=== PATIENT | female | born 1965 | race Caucasian/White ===

== ENCOUNTER 2019-02-01 08:32 | Day surgery (SDC) | payer BC ==
[~2019-02-01 08:32] MED LIST: Lactated Ringers 1,000 ML IV SCH; Sodium Chloride 0.9% 10 ML SDV IV PRN; Sodium Chloride 0.9% 10 ML Syringe FLUSH PRN; Sodium Chloride 0.9% 2.5 ML Syringe FLUSH PRN
--- NOTE | 2019-02-01 10:03 | PCM.PREANE ---
Preanesthetic Assessment - Anesthesia/Transfusion/Family Hx Anesthesia History: Prior Anesthesia Without Reaction Family History of Anesthesia Reaction: No Transfusion History: No Prior Transfusion(s) - Review of Systems General: No Symptoms Pulmonary: No Symptoms Cardiovascular: No Symptoms Gastrointestinal: No Symptoms Neurological: No Symptoms Other: Reports: None - Physical Assessment Vital Signs: Last Vital Signs Temp 98.1 F 02/01/19 09:53 Pulse 53 L 02/01/19 09:53 Resp 16 02/01/19 09:53 BP 144/95 H 02/01/19 09:54 Pulse Ox 97 02/01/19 09:53 Height: 5 ft 4 in Weight: 71.668 kg ASA Class: 2 Mental Status: Alert & Oriented x3 Airway Class: Mallampati = 2 Dentition: Reports: Normal Dentition - Lab Values: Laboratory Last Values WBC 8.94 K/uL (4.0-11.0) 02/01/19 09:12 RBC 4.85 M/uL (4.30-5.90) 02/01/19 09:12 Hgb 16.3 g/dL (12.0-16.0) H 02/01/19 09:12 Hct 47.9 % (36.0-46.0) H 02/01/19 09:12 MCV 98.8 fL (80.0-98.0) H 02/01/19 09:12 MCH 33.6 pg (27.0-32.0) H 02/01/19 09:12 MCHC 34.0 g/dL (31.0-37.0) 02/01/19 09:12 RDW Std Deviation 48.8 fl (28.0-62.0) 02/01/19 09:12 RDW Coeff of Anamika 14 % (11.0-15.0) 02/01/19 09:12 Plt Count 189 K/uL (150-400) 02/01/19 09:12 MPV 10.90 fL (7.40-12.00) 02/01/19 09:12 Nucleated RBC % 0.0 /100WBC 02/01/19 09:12 Nucleated RBCs # 0 K/uL 02/01/19 09:12 Urine HCG, Qual NEGATIVE (NEGATIVE) 02/01/19 09:12 - Allergies Allergies/Adverse Reactions: Allergies Allergy/AdvReac Type Severity Reaction Status Date / Time No Known Allergies Allergy Verified 01/29/19 11:42 - Blood Blood Available: No - Anesthesia Plan Pre-Op Medication Ordered: None - Acknowledgements Anesthesia Type Planned: General Anesthesia Pt an Appropriate Candidate for the Planned Anesthesia: Yes Alternatives and Risks of Anesthesia Discussed w Pt/Guardian: Yes Pt/Guardian Understands and Agrees with Anesthesia Plan: Yes Additional Comments: PMH: smoker, IBS PLAN: ga/lma PreAnesthesia Questionnaire HEENT History: Reports: Other (See Below) Other HEENT History: wears glasses Cardiovascular History: Reports: None Respiratory History: Reports: None Gastrointestinal History: Reports: None Genitourinary History: Reports: None Musculoskeletal History: Reports: Fracture Neurological History: Reports: None Psychiatric History: Reports: None Endocrine/Metabolic History: Reports: None Hematologic History: Reports: None Immunologic History: Reports: None Oncologic (Cancer) History: Reports: None Dermatologic History: Reports: None - Past Surgical History Head Surgeries/Procedures: Reports: None HEENT Surgical History: Reports: None Cardiovascular Surgical History: Reports: None Respiratory Surgical History: Reports: None GI Surgical History: Reports: Colonoscopy Female Surgical History: Reports: None Endocrine Surgical History: Reports: None Neurological Surgical History: Reports: None Musculoskeletal Surgical History: Reports: ORIF Other Musculoskeletal Surgeries/Procedures:: ORIF rt ankle fracture Oncologic Surgical History: Reports: None Dermatological Surgical History: Reports: None - SUBSTANCE USE Smoking Status *Q: Current Every Day Smoker Tobacco Use Within Last Twelve Months: Cigarettes - HOME MEDS Home Medications: Home Meds Cholecalciferol (Vitamin D3) [Vitamin D3] 600 units PO DAILY 01/29/19 [History] Multivitamin [Multivitamins] 1 tab PO DAILY 01/29/19 [History] Phentermine HCl 30 mg PO DAILY 01/29/19 [History] - CURRENT (IN HOUSE) MEDS Current Meds: Current Medications Lactated Ringer's (Ringers, Lactated) 1,000 mls @ 125 mls/hr IV ASDIRECTED [facility] Last Admin: 02/01/19 09:57 Dose: 125 mls/hr Sodium Chloride (Saline Flush) 10 ml FLUSH ASDIRECTED PRN PRN Reason: Keep Vein Open Sodium Chloride (Saline Flush) 2.5 ml FLUSH ASDIRECTED PRN PRN Reason: Keep Vein Open Sodium Chloride (Normal Saline) 10 ml IV ASDIRECTED PRN PRN Reason: IV Use
[2019-02-01] MEDS ORDERED: Bupivacaine 0.25% 10 ML SDV ONE (10:46)
[2019-02-01] MEDS ORDERED: Midazolam 1 MG/ML 2 ML SDV ONE (11:15)
[2019-02-01] MEDS ORDERED: Propofol 200 MG/20 ML SDV ONE (11:15)
[2019-02-01] MEDS ORDERED: fentaNYL 250 MCG/5 ML SDV ONE (11:16)
[2019-02-01] MEDS ORDERED: Lidocaine 2% 5 ML SDV ONE (11:17)
[2019-02-01] MEDS ORDERED: Bupivacaine 25%/EPINEPHrine/PF 30 ML ONE (11:18)
[2019-02-01] MEDS ORDERED: Dexamethasone 4 MG/ML 5 ML MDV ONE (11:31)
[2019-02-01] MEDS ORDERED: Ondansetron 4 MG/2 ML SDV ONE (11:31)
[2019-02-01] MEDS ORDERED: Octyl 2-Cyanoacrylate 1 Tube ONE (12:05)
--- NOTE | 2019-02-01 12:25 | PCM.OPNOTE ---
- General Post-Op/Procedure Note Date of Surgery/Procedure: 02/01/19 Operative Procedure(s): Excision of Right labia lesion. Endocervical Curettage Findings: Pendulated 8cm penduculated right labia majora lesion , Base about 5cm Normal sized anteverted uterus Pre Op Diagnosis: Right Vulvar lesion. Hx of LSIL, insufficient ECC at Colposcopy Post-Op Diagnosis: same Anesthesia Technique: General LMA Primary Surgeon: Rosalia Epps [employer]: Edith Savage Pathology: ECC , Right labia lesion Fluid Replacement, Intraop: 800 Complications: None Condition: Good
--- NOTE | 2019-02-01 12:59 | PCM.POSTAN ---
POST ANESTHESIA ASSESSMENT - MENTAL STATUS Mental Status: Alert, Oriented - VITAL SIGNS Vital Signs: Last Vital Signs Temp 98.1 F 02/01/19 09:53 Pulse 61 02/01/19 12:28 Resp 12 02/01/19 12:28 BP 134/71 02/01/19 12:28 Pulse Ox 95 02/01/19 12:28 - RESPIRATORY Respiratory Status: Respiratory Rate WNL, Airway Patent, O2 Saturation Stable - CARDIOVASCULAR CV Status: Pulse Rate WNL, Blood Pressure Stable - GASTROINTESTINAL GI Status: No Symptoms - POST OP HYDRATION Hydration Status: Adequate & Stable
--- NOTE | 2019-02-01 13:01 | PCM48HPAN ---
Post Anesthesia Note - EVALUATION WITHIN 48HRS OF ANESTHETIC Vital Signs in Normal Range: Yes Patient Participated in Evaluation: Yes Respiratory Function Stable: Yes Airway Patent: Yes Cardiovascular Function Stable: Yes Hydration Status Stable: Yes Pain Control Satisfactory: Yes Nausea and Vomiting Control Satisfactory: Yes Mental Status Recovered: Yes Vital Signs: Last Vital Signs Temp 98.1 F 02/01/19 09:53 Pulse 61 02/01/19 12:28 Resp 12 02/01/19 12:28 BP 134/71 02/01/19 12:28 Pulse Ox 95 02/01/19 12:28
--- NOTE | 2019-02-04 14:58 | OR ---
SURGEON: ARANZA Sharma. DATE OF PROCEDURE: 02/01/2019 PREOPERATIVE DIAGNOSES: 1. Right vulvar lesion. 2. History of low-grade squamous intraepithelial lesion. 3. Had colposcopy done with insufficient endocervical curettage. POSTOPERATIVE DIAGNOSES: 1. Right vulvar lesion. 2. History of LSIL. 3. Had colposcopy done with insufficient endocervical curettage. PROCEDURE: Excision of right labial vulvar lesion and endocervical curettage. NOTES AND FINDING: A pedunculated 8 cm right labial lesion with a base of about 5 cm. EUA showed normal-sized anteverted uterus. Normal-appearing cervix also. ANESTHESIA: General. PATHOLOGY: ECC and right labial lesion. ESTIMATED BLOOD LOSS: About 5 mL. FLUID: 800. URINE OUTPUT: Minimal. DESCRIPTION OF PROCEDURE: The patient was taken to the operating room where general anesthesia was done without difficulty. She was prepared and draped in the dorsolithotomy position with Jordin stirrups. Marcaine and epinephrine was injected at the base of the incision. Two hemostats were used to clamp the base of the incision, which was then cut with an 11 blade knife, after which the base of the incision was then released to see the base and ensured that all the lesion was excised. Further dissection was done with the aid of the scalpel and forceps to get to the base of the lesion. After complete removal the defect was closed with Vicryl 2-0 . Skin was closed with subcutaneous suture of monocryl 3.0. Hemostasis was noted after the procedure. Dermabond was placed on the skin. A speculum was used to expose the cervix. ECC was done without any difficulty. The patient tolerated the procedure well. All instrument and pad counts were correct x2. RAJINDER / AMBER /[id number] ILIR
== END 2019-02-01 13:17 | disposition home or self-care (01) ==
LOC: MW.SDS 08:32
PROVIDERS: ATTEND Obstetrics & Gynecology
DX: N84.3 Polyp of vulva (principal); N87.0 Mild cervical dysplasia; F17.210 Nicotine dependence, cigarettes, uncomplicated; K58.9 Irritable bowel syndrome, unspecified; Z79.1 Long term (current) use of non-steroidal anti-inflammatories (NSAID); Z79.899 Other long term (current) drug therapy
CPT/HCPCS: 11426; 12042; 36415; 57505; 81025; 85027; A9270; J1100; J2001; J2250; J2405; J2704; J3010; J7120; 88305; J3490